=== PATIENT | male | born 1955 | race Caucasian/White ===

== ENCOUNTER 2017-07-15 09:24 | Emergency (ER) | payer BC ==
--- NOTE | 2017-07-15 10:35 | CR ---
Chest: Frontal view of the chest was obtained. Comparison: Previous chest x-ray of 05/26/15. Heart size and mediastinum are normal. Lungs are clear. Bony structures are grossly intact. Impression: 1. Nothing acute is seen on frontal chest x-ray. Diagnostic code #1
[2017-07-15 10:48] VITALS: BP 162/99
--- NOTE | 2017-07-15 11:31 | EDM.PDOC ---
ED HPI GENERAL MEDICAL PROBLEM - General Chief Complaint: Cardiovascular Problem Stated Complaint: HIGH BP Time Seen by Provider: 07/15/17 09:39 Source of Information: Reports: Patient History Limitations: Reports: No Limitations - History of Present Illness INITIAL COMMENTS - FREE TEXT/NARRATIVE: 62 y/o M with concern for high blood pressure. Has been on his current meds which include atenolol and benecar for a long time. Not sure of dose. Compliant. Has checked BP at home and is now consistently getting readings in 150-160's which concerned him. His PCP is out of town and walk in clinic advised him to come here. He also mentions that he's been having chest tightness occasionally with activity. This is new over past couple of weeks. After walking for around 5 -10 minutes or climbing stairs he gets slight chest tightness. No pain. This resolves quickly with rest. Mild SOB associated with it. No nausea/vomiting. No actual pain. No recent illness, fever, or cough. No abd pain/vomiting. No lower extremity pain or swelling. His brothers recently had coronary stents placed and both of his parents had CAD, age of onset unknown. No smoking hx. - Related Data Allergies Allergy/AdvReac Type Severity Reaction Status Date / Time No Known Allergies Allergy Verified 07/15/17 09:46 Home Meds: Home Meds Atenolol 25 mg PO DAILY 07/09/14 [History] Olmesartan [Benicar] 20 mg pe PO DAILY 07/09/14 [History] Allopurinol [Zyloprim] 100 mg PO DAILY 05/26/15 [History] Aspirin 81 mg PO DAILY 05/26/15 [History] Multivitamin [Multi-Day Vitamins] 1 tab PO DAILY 05/26/15 [History] Curamin 3 tab PO DAILY 07/15/17 [History] Gluc 2KCl/Chondr/Asmita Hy/Hy Ac [Glucosamine & Chondroitin Cap] 3 tab PO DAILY [History] Meloxicam 15 mg PO DAILY 07/15/17 [History] Past Medical History HEENT History: Reports: Allergic Rhinitis, Impaired Vision Cardiovascular History: Reports: Hypertension Gastrointestinal History: Reports: Other (See Below) Other Gastrointestinal History: blocked liver with stent placement Musculoskeletal History: Reports: Gout - Past Surgical History Respiratory Surgical History: Reports: None GI Surgical History: Reports: Cholecystectomy Male Surgical History: Reports: None Social & Family History - Family History Family Medical History: Noncontributory Endocrine/Metabolic: Reports: Diabetes, type II - Tobacco Use Smoking Status *Q: Never Smoker Second Hand Smoke Exposure: No - Caffeine Use Caffeine Use: Reports: Coffee - Alcohol Use Days Per Week of Alcohol Use: 0 - Recreational Drug Use Recreational Drug Use: No - Living Situation & Occupation Living situation: Reports: Single, with Family ED ROS GENERAL - Review of Systems Review Of Systems: See Below Constitutional: Denies: Fever HEENT: Reports: No Symptoms Respiratory: Reports: Shortness of Breath. Denies: Cough Cardiovascular: Reports: Chest Pain Endocrine: Reports: No Symptoms GI/Abdominal: Denies: Abdominal Pain, Nausea Musculoskeletal: Reports: No Symptoms. Denies: Leg Pain Neurological: Reports: No Symptoms Psychiatric: Reports: No Symptoms ED EXAM, GENERAL - Physical Exam Exam: See Below Exam Limited By: No Limitations General Appearance: Alert, WD/WN, No Apparent Distress Eye Exam: Bilateral Eye: Normal Inspection Ears: Normal External Exam Nose: Normal Inspection Throat/Mouth: Normal Inspection, Normal Oropharynx, Normal Voice, No Airway Compromise Head: Atraumatic, Normocephalic Neck: Normal Inspection, Supple, Non-Tender Respiratory/Chest: No Respiratory Distress, Lungs Clear, Normal Breath Sounds, No Accessory Muscle Use, Chest Non-Tender Cardiovascular: Normal Peripheral Pulses, Regular Rate, Rhythm, No Edema, No Gallop, No Murmur, No Rub Peripheral Pulses: 2+: Radial (L) GI/Abdominal: Soft, Non-Tender, No Distention. No: Rebound Back Exam: Normal Inspection Extremities: Normal Inspection, Non-Tender, No Pedal Edema Neurological: Alert, Oriented, Normal Cognition Psychiatric: Normal Affect, Normal Mood Skin Exam: Warm, Dry, Intact, Normal Color, No Rash Course - Vital Signs Last Recorded V/S: Last Vital Signs Temp 36.3 C 07/15/17 09:43 Pulse 61 07/15/17 10:47 Resp 16 07/15/17 10:47 BP 162/99 H 07/15/17 10:47 Pulse Ox 96 07/15/17 10:47 - Orders/Labs/Meds Orders: Active Orders 24 hr Category Date Time Status EKG 12 Lead [EKG Documentation Completion] [RC] STAT Care 07/15/17 11:06 Active Labs: Laboratory Tests 07/15/17 07/15/17 Range/Units 10:09 10:09 WBC 5.87 (4.23-9.07) K/mm3 RBC 4.86 (4.63-6.08) M/mm3 Hgb 11.2 L (13.7-17.5) gm/L Hct 39.9 L (40.1-51.0) % MCV 82.1 (79.0-92.2) fl MCH 23.0 L (25.7-32.2) pg MCHC 28.1 L (32.2-35.5) g/dl RDW Std Deviation 42.3 (35.1-43.9) fL Plt Count 126 L (163-337) K/mm3 MPV 10.2 (9.4-12.3) fl Neut % (Auto) 61.9 (34.0-67.9) % Lymph % (Auto) 23.5 (21.8-53.1) % Heard % (Auto) 9.7 (5.3-12.2) % Eos % (Auto) 3.7 (0.8-7.0) Baso % (Auto) 0.7 (0.1-1.2) % Neut # (Auto) 3.63 (1.78-5.38) K/mm3 Lymph # (Auto) 1.38 (1.32-3.57) K/mm3 Heard # (Auto) 0.57 (0.30-0.82) K/mm3 Eos # (Auto) 0.22 (0.04-0.54) K/mm3 Baso # (Auto) 0.04 (0.01-0.08) K/mm3 Manual Slide Review Abnormal smear Sodium 140 (136-145) mEq/L Potassium 4.1 (3.5-5.1) mEq/L Chloride 104 (98-107) mEq/L Carbon Dioxide 25 (21-32) mEq/L Anion Gap 15.1 H (5-15) BUN 24 H (7-18) mg/dL Creatinine 1.2 (0.7-1.3) mg/dL Est Cr Clr Drug Dosing 66.75 mL/min Estimated GFR (MDRD) > 60 (>60) mL/min BUN/Creatinine Ratio 20.0 H (14-18) Glucose 127 H (80-115) mg/dL Calcium 9.3 (8.5-10.1) mg/dL Total Bilirubin 1.1 H (0.2-1.0) mg/dL AST 35 (15-37) U/L ALT 32 (16-63) U/L Alkaline Phosphatase 56 (46-116) U/L Troponin I < 0.017 (0.00-0.056) ng/mL Total Protein 8.4 H (6.4-8.2) g/dl Albumin 4.3 (3.4-5.0) g/dl Globulin 4.1 gm/dL Albumin/Globulin Ratio 1.1 (1-2) - Re-Assessments/Exams Free Text/Narrative Re-Assessment/Exam: 07/15/17 15:03 EKG shows NSR, no ST/T abnormality, no evidence of acute ischemia, intervals normal. Normal EKG. CXR shows normal cardiac silhouette, no abnormality. Troponin negative. Labs normal. BP 140-170 systolic. Advised him to increase benecar dose from 20 to 40mg daily and recheck with PCP. He does have risk factors for CAD including strong family history and age. His description of chest tightness with exertion is concerning for possible angina. His EKG/exam/ labs are all reassuring today. Advised him to f/u with PCP to arrange for stress testing. He has not had chest pain today. Discussed strict return precautions for chest pain. Departure - Departure Time of Disposition: 11:29 Disposition: Home, Self-Care 01 Clinical Impression: Hypertension Qualifiers: Hypertension type: unspecified Qualified Code(s): I10 - Essential (primary) hypertension Chest pain Qualifiers: Chest pain type: other chest pain Qualified Code(s): R07.89 - Other chest pain Instructions: Nonspecific Chest Pain, [id number], Hypertension Referrals: Tiago Murcia Jr, MD [Primary Care Provider] - Forms: ED Department Discharge Additional Instructions: 1. If your prescription for olmesartan is 20mg or less, double the dose to 40mg daily. If you are already taking 40mg call me at the ER for a new plan. [phone]. 2. Follow up with your primary doctor as soon as possible to discuss referral for stress test given recent episodes of chest tightness 3. Return to the ED if you have chest tightness that doesn't quickly resolve, or chest pain, shortness of breath, or any other concerning symptoms - My Orders Last 24 Hours: My Active Orders 07/15/17 11:06 EKG 12 Lead [EKG Documentation Completion] [RC] STAT - Assessment/Plan Last 24 Hours: My Active Orders 07/15/17 11:06 EKG 12 Lead [EKG Documentation Completion] [RC] STAT
== END 2017-07-15 11:48 | disposition home or self-care (01) ==
LOC: JD.ED 09:24
DX: R07.89 Other chest pain (principal); I10 Essential (primary) hypertension; Z82.49 Family history of ischemic heart disease and other diseases of the circulatory system; Z79.899 Other long term (current) drug therapy; Z79.82 Long term (current) use of aspirin
CPT/HCPCS: 36415; 71045; 71045-26; 80053; 84484; 85025; 93005; 93010; 99284-25

== ENCOUNTER 2023-03-16 23:16 | Emergency (ER) | payer SELFPAY ==
[2023-03-16] MEDS ORDERED: Prochlorperazine 10 MG/2 ML SDV IVPUSH ONE (23:40)
[2023-03-16 23:57] LABS: BASOPHILS PERCENT AUTO 0.6 % (0.0-1.0); EOSINOPHILS ABSOLUTE AUTO 0.1 K/mm3 (0.0-0.4); EOSINOPHILS PERCENT AUTO 0.9 % (0.0-6.0); HEMOGLOBIN 15.1 gm/dl (14.0-18.0); IMMATURE GRAN ABSOLUTE AUTO 0.15 K/mm3 (0.00-0.05); IMMATURE GRAN PERCENT AUTO 2.2 % (0.0-0.4); LYMPHOCYTES ABSOLUTE AUTO 0.5 K/mm3 (1.0-4.8); LYMPHOCYTES PERCENT AUTO 7.7 % (24.0-44.0); MEAN CORPUSCULAR HEMOGLOBIN 29.4 pg (28.0-32.0); MEAN CORPUSCULAR HGB CONC 35.1 g/dl (32.0-36.0); MEAN CORPUSCULAR VOLUME 83.8 fl (83.0-99.0); MEAN PLATELET VOLUME 10.1 fl (9.4-12.4); MONOCYTES ABSOLUTE AUTO 0.2 K/mm3 (0.0-0.8); MONOCYTES PERCENT AUTO 3.1 % (0.0-8.0); NEUTROPHILS ABSOLUTE AUTO 5.8 K/mm3 (1.8-7.7); NEUTROPHILS PERCENT AUTO 85.5 % (41.0-71.0); PLATELET COUNT,PLT 212 K/mm3 (150-400); RED BLOOD CELL COUNT 5.13 M/mm3 (4.52-5.90); WHITE BLOOD CELL COUNT,WBC 6.77 K/mm3 (3.9-11.3)
[2023-03-17 00:12] LABS: A/G RATIO 1.1 (1-2); ALBUMIN 4.2 g/dl (3.4-5.0); ANION GAP 17.6 (5-15); BILIRUBIN TOTAL 4.3 mg/dL (0.2-1.0); BUN/CREATININE RATIO 22.5 (14-18); CALCIUM 9.6 mg/dL (8.5-10.1); CREATININE 1.2 mg/dL (0.7-1.3); EST CRCL DRUG DOSING (CG) 62.52 mL/min; POTASSIUM,K 3.6 mEq/L (3.5-5.1); PROTEIN TOTAL,TP 8.2 g/dl (6.4-8.2)
[2023-03-17] MEDS ORDERED: diphenhydrAMINE 50 MG/ML SDV ONE (01:22)
[2023-03-17 07:15] VITALS: BP 132/74; PULSE 75
== END 2023-03-17 07:10 | disposition home or self-care (01) ==
LOC: JD.ED 23:16
DX: R10.84 Generalized abdominal pain (principal); R10.13 Epigastric pain; E80.6 Other disorders of bilirubin metabolism; I10 Essential (primary) hypertension; Z79.82 Long term (current) use of aspirin; Z79.899 Other long term (current) drug therapy
CPT/HCPCS: 36415; 80053; 83690; 84484; 85025; 93005; 96374; 99284; J0780; J1200; 93010

== ENCOUNTER 2024-04-04 12:11 | Day surgery (SDC) | payer MEDICARE, OTHER ==
[~2024-04-04 12:11] MED LIST: Ondansetron 4 MG/2 ML SDV ONE; Propofol 200 MG/20 ML SDV ONE; Rocuronium 50 MG/5 ML Vial ONE; Sodium Chloride 0.9% 10 ML Syringe FLUSH PRN; Sodium Chloride 0.9% 10 ML Syringe FLUSH SCH; ceFAZolin 2 GM Vial ONE; fentaNYL 250 MCG/5 ML SDV ONE
[2024-04-04] MEDS ORDERED: dexmedeTOMIDine HCl 200 MCG/2 ML SDV ONE (12:21)
[2024-04-04] MEDS ORDERED: Rocuronium 50 MG/5 ML Vial ONE (12:37)
[2024-04-04] MEDS: Lactated Ringers 1,000 ML IV SCH (12:45)
[2024-04-04] MEDS: Acetaminophen 325 MG Tab PO ONE (12:57)
[2024-04-04] MEDS: Gabapentin 300 MG Cap PO ONE (12:57)
[2024-04-04] MEDS ORDERED: Ketorolac 30 MG/ML SDV ONE (13:05)
[2024-04-04] MEDS ORDERED: Sugammadex Sodium 200 MG/2 ML VIAL IV ONE (13:07)
[2024-04-04] MEDS: Lidocaine 1% with EPINEPHrine 1:100,000 20 ML MDV ONE (13:30)
[2024-04-04] MEDS: Bupivacaine 0.5% 30 ML SDV ONE (13:32)
[2024-04-04] MEDS: EPINEPHrine 1 MG/ML SDV ONE (13:32)
[2024-04-04] MEDS ORDERED: fentaNYL 100 MCG/2 ML SDV IVPUSH PRN (14:46)
[2024-04-04] MEDS ORDERED: HYDROmorphone 0.5 MG/0.5 ML Syringe IVPUSH PRN (14:46)
[2024-04-04] MEDS ORDERED: Acetaminophen/oxyCODONE 325-5 MG Tab PO PRN (15:34)
[2024-04-04 17:33] VITALS: BP 120/80; PULSE 70
== END 2024-04-04 17:20 | disposition home or self-care (01) ==
LOC: JD.SDS 12:11
PROVIDERS: ATTEND Surgery
DX: K40.20 Bilateral inguinal hernia, without obstruction or gangrene, not specified as recurrent (principal); I10 Essential (primary) hypertension; Z79.899 Other long term (current) drug therapy
CPT/HCPCS: 49650; A9270; C1727; C1781; J0171; J0665; J0690; J1885; J2405; J2704; J3010; J3490; J7120